=== PATIENT | female | born 1985 | race African-American/Black ===

== ENCOUNTER 2017-08-30 08:53 | Emergency (ER) | payer MEDICAID, OTHER ==
[~2017-08-30] VITALS: Ht 175.3 cm; Wt 95.5 kg
[2017-08-30 10:22] VITALS: BP 130/92
== END 2017-08-30 10:30 | disposition home or self-care (01) ==
LOC: EMS 08:56
DX: R19.8 Other specified symptoms and signs involving the digestive system and abdomen (principal); R13.10 Dysphagia, unspecified
CPT/HCPCS: 99283

== ENCOUNTER 2017-11-24 17:05 | Emergency (ER) | payer SELFPAY ==
[~2017-11-24] VITALS: Ht 167.6 cm; Wt 95.5 kg
[2017-11-24] MEDS ORDERED: KETOROLAC TROMETHAMINE 60 MG/2 ML VIAL IM ONE (19:45)
[2017-11-24 20:06] VITALS: BP 131/90
== END 2017-11-24 20:19 | disposition home or self-care (01) ==
LOC: EMS 17:06
DX: S00.83XA Contusion of other part of head, initial encounter (principal); S80.11XA Contusion of right lower leg, initial encounter; G43.909 Migraine, unspecified, not intractable, without status migrainosus; W19.XXXA Unspecified fall, initial encounter; Y93.89 Activity, other specified; Y92.89 Other specified places as the place of occurrence of the external cause; Y99.8 Other external cause status
CPT/HCPCS: 96372; 99283; J1885

== ENCOUNTER 2018-06-22 00:21 | Emergency (ER) | payer SELFPAY ==
[~2018-06-22] VITALS: Ht 167.6 cm; Wt 90.9 kg
[2018-06-22 01:03] LABS: BASOPHILS % (AUTO) 1.5 % (0.0-2.0); EOSINOPHILS % (AUTO) 1.7 % (1.0-6.0); HEMATOCRIT 32.2 % (36-46); LYMPHOCYTES # (AUTO) 3.7 K/uL (1.0-4.8); LYMPHOCYTES % (AUTO) 30.3 % (22.0-44.0); MEAN CORPUSCULAR HEMOGLOBIN 17.5 pg (26.0-34.0); MEAN CORPUSCULAR HGB CONC 28.9 G/dL (31.0-37.0); MEAN CORPUSCULAR VOLUME 61 fL (80-100); MONOCYTES # (AUTO) 0.7 K/uL (0.1-1.0); MONOCYTES % (AUTO) 5.7 % (2.0-9.0); NEUTROPHILS # (AUTO) 7.3 K/uL (1.8-7.7); NEUTROPHILS % (AUTO) 60.8 % (40.0-70.0); PLATELET COUNT (AUTO) 422 K/uL (150-450); RED BLOOD CELL COUNT(AUTO) 5.31 MIL/uL (4.00-5.20); RED CELL DISTRIBUTION WIDTH 22.5 % (11.5-14.5)
[2018-06-22 01:10] LABS: ANION GAP 4 mmol/L (8-16); CALCIUM, TOTAL 8.5 mg/dL (8.8-10.5); CARBON DIOXIDE 32 mmol/L (22-29); CHLORIDE 104 mmol/L (98-107); CREATININE 1.04 mg/dL (0.60-1.30); GLOMERULAR FILTR. RATE CALC > 60 mL/min (>60); GLUCOSE,RANDOM 101 mg/dL (70-110); POTASSIUM 3.8 mmol/L (3.5-5.1); SODIUM SERUM 140 mmol/L (136-145); UREA NITROGEN, BLOOD 13 mg/dL (7-18)
[2018-06-22 01:14] LABS: HEMOGLOBIN 10.3 g/dL (12.0-16.0)
[2018-06-22 01:20] LABS: APPEARANCE,URINE CLOUDY (CLEAR); BILIRUBIN,URINE NEGATIVE (NEGATIVE); GLUCOSE, URINE (UA) NEGATIVE (NEGATIVE); KETONES,URINE NEGATIVE (NEGATIVE); LEUKOCYTE ESTERASE ,URINE TRACE (NEGATIVE); NITRATE,URINE NEGATIVE (NEGATIVE); OCCULT BLOOD,URINE LARGE (NEGATIVE); PH,URINE 5.5 (5.0-8.0); PROTEIN,URINE POS 1+ (NEGATIVE); UROBILINOGEN,URINE 0.2 mg/dL (<=1.0)
[2018-06-22 01:23] LABS: ALANINE AMINOTRANSFERASE 20 U/L (12-78); ALBUMIN 3.2 g/dL (3.4-5.0); ALKALINE PHOSPHATASE 57 U/L (46-116); ASPARTATE AMINOTRANSFERASE 14 U/L (15-37); BILIRUBIN,TOTAL 0.2 mg/dL (0.1-1.0); HCG,QUANTITATIVE < 1 mIU/mL (0-6); LIPASE 391 U/L (73-393); TOTAL PROTEIN, SERUM 7.6 g/dL (6.4-8.2)
[2018-06-22 01:27] LABS: PLATELET MORPHOLOGY COMMENT GIANT PLTS PRESENT
[2018-06-22 01:30] LABS: RBC,URINE 51-100 /HPF (0-2)
[2018-06-22] MEDS ORDERED: KETOROLAC TROMETHAMINE 30 MG/ML VIAL IVP ONE (01:30)
[2018-06-22] MEDS ORDERED: SODIUM CHLORIDE 0.9% 1,000 ML IV ONE (01:30)
[2018-06-22 01:31] LABS: BACTERIA,URINE Few /HPF (None Seen); MUCUS,URINE Few LPF (None Seen); SQUAMOUS EPITHELIAL CELL,UR Many /LPF (None Seen)
[2018-06-22 02:30] VITALS: BP 134/83
== END 2018-06-22 03:14 | disposition home or self-care (01) ==
LOC: EMS 00:22
DX: N39.0 Urinary tract infection, site not specified (principal)
CPT/HCPCS: 36415; 74176; 80053; 81001; 83690; 84702; 85025; 87086; 96374; 99284; J1885; J7030

== ENCOUNTER 2019-08-09 07:53 | Emergency (ER) | payer MEDICAID ==
[~2019-08-09] VITALS: Ht 175.3 cm; Wt 109.1 kg
[2019-08-09] MEDS ORDERED: ACETAMINOPHEN 500 MG TABLET PO ONE (09:00)
[2019-08-09] MEDS ORDERED: ONDANSETRON HCL 4 MG TABLET PO ONE (09:00)
[2019-08-09 09:26] VITALS: BP 132/79
== END 2019-08-09 09:29 | disposition home or self-care (01) ==
LOC: EMS 07:54
DX: R05 Cough (principal); R11.0 Nausea; J02.9 Acute pharyngitis, unspecified; R09.81 Nasal congestion; R50.9 Fever, unspecified; G43.909 Migraine, unspecified, not intractable, without status migrainosus
CPT/HCPCS: 99283; Q0162

== ENCOUNTER 2021-08-17 10:02 | Emergency (ER) | payer MEDICAID ==
[~2021-08-17] VITALS: Ht 167.6 cm; Wt 100.0 kg
[2021-08-17] MEDS ORDERED: HYDR-4723 PO (14:00)
[2021-08-17 15:56] VITALS: BP 154/89
== END 2021-08-17 16:01 | disposition home or self-care (01) ==
LOC: EMS 10:07
DX: S83.92XA Sprain of unspecified site of left knee, initial encounter (principal); G43.909 Migraine, unspecified, not intractable, without status migrainosus; W19.XXXA Unspecified fall, initial encounter; Y93.01 Activity, walking, marching and hiking; Y92.89 Other specified places as the place of occurrence of the external cause; Y99.8 Other external cause status
CPT/HCPCS: 99283